=== PATIENT | female | born 1985 | race African-American/Black ===

== ENCOUNTER 2018-12-21 20:11 | Emergency (ER) | payer OTHER, BC, MEDICAID ==
[2018-12-21] MEDS: IBUPROFEN 800 MG TAB PO (23:47)
[2018-12-21] MEDS: HYDROCODONE/APAP (10/325) TAB PO (23:47)
== END 2018-12-22 01:06 | disposition home or self-care (01) ==
LOC: FTE 20:11
DX: M25.561 Pain in right knee (principal)
CPT/HCPCS: 99283